=== PATIENT | female | born 1995 | race Two or more races ===

== ENCOUNTER 2022-08-30 19:25 | Inpatient (IN) | payer BC ==
[2022-08-30] MEDS ORDERED: DEXTROSE 5%-LACTATED RINGERS 1,000 ML IV SCH ×2 (20:30→23:30)
[2022-08-30 21:34] LABS: BASO % 0.3 % (0-2.0); EOS % 0.1 % (0-4.5); HEMATOCRIT 36.5 % (32.4-45.2); HEMOGLOBIN 12.8 GM/dL (10.7-15.3); LYMPH % 24.7 % (8-40); MCH 32.2 pg (25.7-33.7); MCHC 34.9 g/dl (32.0-36.0); MEAN CELL VOLUME 92.3 fl (80-96); MEAN PLT VOLUME 9.9 fl (7.5-11.1); MONO % 8.3 % (3.8-10.2); NEUT % 66.6 % (42.8-82.8); PLATELET COUNT 227 10^3/uL (134-434); RBC 3.96 M/mm3 (3.60-5.2); RDW 13.2 % (11.6-15.6); WHITE BLOOD COUNT 7.3 K/mm3 (4.0-10.0)
[2022-08-30 21:41] LABS: INR 1.01 (0.83-1.09); PROTHROMBIN TIME (PATIENT) 11.6 SEC (9.7-13.0)
[2022-08-30 21:55] LABS: CALCIUM 8.8 mg/dL (8.5-10.1)
[2022-08-30 21:57] LABS: ALBUMIN 2.8 g/dl (3.4-5.0); BLOOD UREA NITROGEN 16.3 mg/dL (7-18)
[2022-08-30 21:58] LABS: CREATININE 0.9 mg/dL (0.55-1.3); URIC ACID 5.4 mg/dL (2.6-7.2)
[2022-08-30 22:00] LABS: BILIRUBIN,TOTAL 0.4 mg/dL (0.2-1); TOT PROT 5.5 g/dl (6.4-8.2)
[2022-08-30 22:02] LABS: EPI CELLS >36 /uL (0-25.1); HYALINE CASTS 1 /uL (0-3.1); URINE APPEARANCE CLEAR; URINE BACTERIA 277 /uL (0-1359); URINE BILIRUBIN NEGATIVE (NEGATIVE); URINE COLOR YELLOW; URINE GLUCOSE (UA) NEGATIVE (NEGATIVE); URINE KETONE NEGATIVE (NEGATIVE); URINE LEUK ESTERASE 2+ (NEGATIVE); URINE NITRITE NEGATIVE (NEGATIVE); URINE PROTEIN 2+ (NEGATIVE); URINE RBC 16 /uL (0-23.9); URINE UROBILINOGEN 0.2 mg/dL (0.2-1.0); URINE WBC 56 /uL (0-25.8)
[2022-08-30 22:03] VITALS: BMI 30.6
[2022-08-31] MEDS ORDERED: MAGNESIUM 4GM/H20 - 4 GM/100 ML IVPB IVPB ONE ×2 (04:14→04:15)
[2022-08-31] MEDS ORDERED: DEXTROSE 5%-LACTATED RINGERS 1,000 ML IV SCH (04:15)
[2022-08-31] MEDS ORDERED: MAGNESIUM SULFATE 20GM/500ML - 20 GM/500 ML INFUS.BAG ONE ×2 (04:48→23:56)
[2022-08-31] MEDS: MAGNESIUM SULFATE 20GM/500ML - 20 GM/500 ML INFUS.BAG IVPB SCH (04:50)
[2022-08-31 09:23] LABS: BASO % 0.2 % (0-2.0); EOS % 0.1 % (0-4.5); HEMATOCRIT 40.1 % (32.4-45.2); HEMOGLOBIN 13.3 GM/dL (10.7-15.3); LYMPH % 16.4 % (8-40); MCHC 33.2 g/dl (32.0-36.0); MEAN CELL VOLUME 93.5 fl (80-96); MEAN PLT VOLUME 10.7 fl (7.5-11.1); MONO % 6.4 % (3.8-10.2); NEUT % 76.9 % (42.8-82.8); PLATELET COUNT 223 10^3/uL (134-434); RBC 4.29 M/mm3 (3.60-5.2); WHITE BLOOD COUNT 7.8 K/mm3 (4.0-10.0)
[2022-08-31 09:47] LABS: ALBUMIN 2.8 g/dl (3.4-5.0); CALCIUM 8.4 mg/dL (8.5-10.1)
[2022-08-31 09:48] LABS: MAGNESIUM 3.9 mg/dL (1.8-2.4)
[2022-08-31 09:51] LABS: BILIRUBIN,TOTAL 0.4 mg/dL (0.2-1); CREATININE 0.8 mg/dL (0.55-1.3); TOT PROT 5.8 g/dl (6.4-8.2)
[2022-08-31 09:53] LABS: URIC ACID 5.6 mg/dL (2.6-7.2)
[2022-08-31] MEDS ORDERED: OXYTOCIN 30 UNITS in 0.9% NS 30 UNIT/500 ML INFUS.BAG IVPB ONE (13:46)
[2022-08-31] MEDS: OXYTOCIN 30 UNITS in 0.9% NS 30 UNIT/500 ML INFUS.BAG IVPB SCH (14:00)
[2022-08-31] MEDS: ELECTROLYTE-148 SOLN 1,000 ML IV SCH (15:00)
[2022-08-31] MEDS ORDERED: ELECTROLYTE-148 SOLN 1,000 ML IV SCH (16:00)
[2022-08-31] MEDS ORDERED: hydrALAZINE HCL 20 MG/ML VIAL ONE (16:07)
[2022-08-31] MEDS ORDERED: hydrALAZINE HCL 20 MG/ML VIAL IVPUSH ONE (16:15)
[2022-08-31] MEDS ORDERED: NALOXONE HCL 0.4 MG/ML VIAL IVPUSH PRN (16:34)
[2022-08-31] MEDS ORDERED: FENTANYL/BUPIVACAINE/NS/PF - PCEA - 50 ML DISP.SYRIN EP ONE ×2 (16:35→20:40)
[2022-08-31] MEDS: FENTANYL/BUPIVACAINE/NS/PF - PCEA - 50 ML DISP.SYRIN EP SCH ×2 (17:00→20:45)
[2022-08-31] MEDS ORDERED: ONDANSETRON 4 MG/2 ML VIAL ONE (17:08)
[2022-08-31] MEDS ORDERED: BUPIVACAINE HCL/PF 0.25% (2.5MG/ML) 10 ML VIAL ONE (20:50)
[2022-08-31 21:51] LABS: MAGNESIUM 4.9 mg/dL (1.8-2.4)
[2022-08-31] MEDS ORDERED: OXYTOCIN 20 UNITS in 0.9% NS 20 UNIT/1,000 ML INFUS.BAG IV ONE (22:59)
[2022-09-01] MEDS ORDERED: oxyCODONE HCL 5 MG TABLET PO PRN (00:18)
[2022-09-01] MEDS ORDERED: METHYLERGONOVINE MALEATE 0.2 MG/1 ML AMP IM PRN (00:18)
[2022-09-01] MEDS ORDERED: ACETAMINOPHEN 325 MG TABLET (FP) PO PRN (00:18)
[2022-09-01] MEDS ORDERED: BISACODYL 10 MG SUPP.RECT RC PRN (00:18)
[2022-09-01] MEDS ORDERED: WITCH HAZEL 50% (TUCKS) 40 PAD/JAR PAD TP PRN (00:18)
[2022-09-01] MEDS ORDERED: BENZOCAINE 28 GM HEMORRHOIDAL OINTMENT TP PRN (00:18)
[2022-09-01] MEDS ORDERED: OXYTOCIN 20 UNITS in 0.9% NS 20 UNIT/1,000 ML INFUS.BAG IV SCH (00:30)
[2022-09-01 00:54] LABS: CORD BASE EXCESS -10.1 mmol/L (0-2); CORD HCO3 19.5 mmHg (20-29); CORD PCO2 57.5 mmHg (30-78); CORD pH 7.149 (7.14-7.44)
[2022-09-01 01:01] LABS: CORD HCO3 19.9 mmHg (20-29); CORD PCO2 66.4 mmHg (30-78); CORD pH 7.094 (7.14-7.44)
[2022-09-01] MEDS: BENZOCAINE 20% 57 GM BOTTLE TP PRN ×2 (02:35→15:00)
[2022-09-01] MEDS: IBUPROFEN 600 MG TABLET (FP) PO PRN ×2 (03:22→15:28)
[2022-09-01 09:48] LABS: POC NITRAZINE POS
[2022-09-01 10:13] LABS: MAGNESIUM 4.8 mg/dL (1.8-2.4)
[2022-09-01] MEDS ORDERED: PRENATAL VITAMINS W/ FOLIC ACID TABLET (FP) PO ONE (10:23)
[2022-09-01] MEDS: PRENATAL VITAMINS W/ FOLIC ACID TABLET (FP) PO SCH (10:30)
[2022-09-01] MEDS: NIFEdipine E.R. 30 MG TABLET PO SCH (16:27)
[2022-09-01] MEDS: ELECTROLYTE-148 SOLN 1,000 ML IV SCH (20:14)
[2022-09-01] MEDS: OXYTOCIN 30 UNITS in 0.9% NS 30 UNIT/500 ML INFUS.BAG IVPB SCH (20:14)
[2022-09-01] MEDS: MAGNESIUM SULFATE 20GM/500ML - 20 GM/500 ML INFUS.BAG IVPB SCH ×2 (20:14)
[2022-09-01] MEDS: FENTANYL/BUPIVACAINE/NS/PF - PCEA - 50 ML DISP.SYRIN EP SCH (20:15)
[2022-09-02] MEDS: IBUPROFEN 600 MG TABLET (FP) PO PRN ×2 (03:52→14:28)
[2022-09-02 07:30] LABS: BASO % 0.2 % (0-2.0); EOS % 0.2 % (0-4.5); HEMOGLOBIN 10.5 GM/dL (10.7-15.3); LYMPH % 19.5 % (8-40); MCH 31.4 pg (25.7-33.7); MCHC 33.8 g/dl (32.0-36.0); MEAN CELL VOLUME 93.1 fl (80-96); MEAN PLT VOLUME 10.5 fl (7.5-11.1); MONO % 5.9 % (3.8-10.2); NEUT % 74.2 % (42.8-82.8); PLATELET COUNT 187 10^3/uL (134-434); RBC 3.32 M/mm3 (3.60-5.2); RDW 13.6 % (11.6-15.6)
[2022-09-02] MEDS: NIFEdipine E.R. 30 MG TABLET PO SCH (10:52)
[2022-09-02] MEDS: PRENATAL VITAMINS W/ FOLIC ACID TABLET (FP) PO SCH (10:52)
[2022-09-02] MEDS ORDERED: SENNOSIDES/DOCUSATE COMBO (SENNA PLUS) TABLET (UD) PO PRN (22:00)
[2022-09-02 22:30] LABS: N-TERMINAL BNP 212.2 pg/ml (5-125)
[2022-09-02 23:01] LABS: N-TERMINAL BNP 221.9 pg/ml (5-125)
[2022-09-03] MEDS ORDERED: FUROSEMIDE 40 MG/4 ML INJECTABLE VIAL IVPUSH ONE (00:46)
[2022-09-03] MEDS ORDERED: CEFTRIAXONE 1 GM in DEXTROSE 5%-WATER - 50 ML IVPB ONE (00:52)
[2022-09-03] MEDS ORDERED: FUROSEMIDE 40 MG/4 ML INJECTABLE VIAL IVPUSH SCH (10:00)
[2022-09-03 10:01] LABS: CHOLESTEROL 188 mg/dL (50-200); TRIGLYCERIDES 157 mg/dL (0-150)
[2022-09-03 10:02] LABS: LDL CHOLESTEROL (ONLY SJRH) 95 mg/dL (5-100)
[2022-09-03 10:04] LABS: HDL CHOLESTEROL 73 mg/dL (40-60)
[2022-09-03 10:06] LABS: LDH 227 U/L (84-246)
[2022-09-03] MEDS: PRENATAL VITAMINS W/ FOLIC ACID TABLET (FP) PO SCH (10:20)
[2022-09-03] MEDS: IBUPROFEN 600 MG TABLET (FP) PO PRN (13:44)
[2022-09-03 15:26] VITALS: RESP 18
[2022-09-03 18:05] LABS: EPI CELLS 13 /uL (0-25.1); HYALINE CASTS 5 /uL (0-3.1); PH,URINE 6.5 (5.0-8.0); URINE APPEARANCE CLOUDY; URINE BACTERIA 15 /uL (0-1359); URINE BILIRUBIN NEGATIVE (NEGATIVE); URINE COLOR RED; URINE GLUCOSE (UA) NEGATIVE (NEGATIVE); URINE KETONE NEGATIVE (NEGATIVE); URINE LEUK ESTERASE 3+ (NEGATIVE); URINE NITRITE NEGATIVE (NEGATIVE); URINE PROTEIN 2+ (NEGATIVE); URINE WBC 1578 /uL (0-25.8)
[2022-09-03 18:36] LABS: URINE RBC 13022 /uL (0-23.9)
[2022-09-04 02:15] VITALS: TEMP 98.6
[2022-09-04] MEDS: PRENATAL VITAMINS W/ FOLIC ACID TABLET (FP) PO SCH (09:20)
[2022-09-04 09:55] VITALS: BP 131/79; PULSE 81
== END 2022-09-04 12:40 | disposition home or self-care (01) | DRG 806 ==
LOC: JLDR 19:25 → J3W 09-01 14:00
PROVIDERS: ADMIT Obstetrics & Gynecology; ATTEND Obstetrics & Gynecology
PROC: 10E0XZZ Delivery of Products of Conception, External Approach (ICD-10-PCS; principal; 2022-08-31)
PROC: 0W8NXZZ Division of Female Perineum, External Approach (ICD-10-PCS; 2022-08-31)
DX: O16.4 Unspecified maternal hypertension, complicating childbirth (principal); N39.0 Urinary tract infection, site not specified; Z37.0 Single live birth; O86.20 Urinary tract infection following delivery, unspecified; O14.04 Mild to moderate pre-eclampsia, complicating childbirth; O42.02 Full-term premature rupture of membranes, onset of labor within 24 hours of rupture; O70.1 Second degree perineal laceration during delivery; O90.89 Other complications of the puerperium, not elsewhere classified; R00.2 Palpitations; R07.9 Chest pain, unspecified; R06.02 Shortness of breath; Z3A.38 38 weeks gestation of pregnancy
CPT/HCPCS: 36415; 36600; 59409; 71045-TC-FY; 80053; 80061; 81003; 82550; 82553; 82803; 82977; 83010; 83615; 83735; 83880; 83986-QW; 84443; 84484; 84550; 85025; 85045; 85384; 85610; 85730; 86780; 86850; 86900; 86901; 87077; 87086; 93005; 93010; 93306-TC; 94010; C9803-CS; U0003; U0005

== ENCOUNTER 2024-08-18 13:10 | Inpatient (IN) | payer OTHER ==
[2024-08-18] MEDS ORDERED: AMPICILLIN SODIUM 2 GM VIAL ONE (13:39)
[2024-08-18] MEDS: ELECTROLYTE-148 SOLN 1,000 ML IV SCH (13:50)
[2024-08-18] MEDS: AMPICILLIN - 2 GM in SODIUM CHLORIDE 100 ML IVPB SCH (13:55)
[2024-08-18 15:38] LABS: BASO % 0.2 % (0-2.0); EOS % 0.2 % (0-4.5); HEMATOCRIT 33.4 % (32.4-45.2); HEMOGLOBIN 11.2 GM/dL (10.7-15.3); LYMPH % 16.5 % (8-40); MCH 28.5 pg (25.7-33.7); MCHC 33.5 g/dl (32.0-36.0); MEAN CELL VOLUME 85.2 fl (80-96); MEAN PLT VOLUME 9.8 fl (7.5-11.1); MONO % 6.6 % (3.8-10.2); NEUT % 76.5 % (42.8-82.8); PLATELET COUNT 205 10^3/uL (134-434); RBC 3.92 M/mm3 (3.60-5.2); RDW 14.8 % (11.6-15.6); WHITE BLOOD COUNT 6.7 K/mm3 (4.0-10.0)
[2024-08-18 15:52] LABS: POTASSIUM 4.4 mmol/L (3.5-5.1)
[2024-08-18 15:54] LABS: CALCIUM 8.7 mg/dL (8.5-10.1)
[2024-08-18 15:58] VITALS: BMI 31.6
[2024-08-18 15:58] LABS: CREATININE 0.8 mg/dL (0.55-1.3)
[2024-08-18 17:20] LABS: INR 0.98 (0.83-1.09); PROTHROMBIN TIME (PATIENT) 11.1 SEC (9.7-13.0)
[2024-08-18 17:23] LABS: ACTIVATED PTT 25.6 SECONDS (25.2-36.5)
[2024-08-18] MEDS: AMPICILLIN - 1 GM in SODIUM CHLORIDE 100 ML IVPB SCH (18:57)
[2024-08-18] MEDS ORDERED: AMPICILLIN SODIUM 1 GM VIAL ONE ×2 (19:18→23:49)
[2024-08-18] MEDS ORDERED: OXYTOCIN 30 UNITS in 0.9% NS 30 UNIT/500 ML INFUS.BAG IVPB ONE (20:50)
[2024-08-18] MEDS: OXYTOCIN 30 UNITS in 0.9% NS 30 UNIT/500 ML INFUS.BAG IVPB SCH (20:55)
[2024-08-18] MEDS ORDERED: FENTANYL/BUPIVACAINE/NS/PF - PCEA - 50 ML DISP.SYRIN EP ONE (21:42)
[2024-08-18] MEDS: FENTANYL/BUPIVACAINE/NS/PF - PCEA - 50 ML DISP.SYRIN EP SCH (22:05)
[2024-08-18] MEDS ORDERED: NALOXONE HCL 0.4 MG/ML VIAL IVPUSH PRN (22:26)
[2024-08-19] MEDS ORDERED: OXYTOCIN 20 UNITS in 0.9% NS 20 UNIT/1,000 ML INFUS.BAG IV ONE (01:10)
[2024-08-19] MEDS ORDERED: LIDOCAINE HCL 1% PRESERVATIVE FREE - 30ML VIAL ONE (01:10)
[2024-08-19] MEDS: OXYTOCIN 20 UNITS in 0.9% NS 20 UNIT/1,000 ML INFUS.BAG IV SCH (01:35)
[2024-08-19] MEDS ORDERED: METHYLERGONOVINE MALEATE 0.2 MG/1 ML AMP IM PRN (01:48)
[2024-08-19] MEDS ORDERED: WITCH HAZEL 50% (TUCKS) 40 PAD/JAR PAD TP PRN (01:48)
[2024-08-19] MEDS ORDERED: oxyCODONE HCL 5 MG TABLET PO PRN (01:48)
[2024-08-19] MEDS ORDERED: ACETAMINOPHEN 325 MG TABLET (FP) PO PRN (01:48)
[2024-08-19] MEDS ORDERED: BENZOCAINE 28 GM HEMORRHOIDAL OINTMENT TP PRN (01:48)
[2024-08-19] MEDS ORDERED: BISACODYL 10 MG SUPP.RECT RC PRN (01:48)
[2024-08-19] MEDS: PROMETHAZINE HCL 25 MG/1 ML VIAL IVPB ONE (02:13)
[2024-08-19 02:18] LABS: CORD BASE EXCESS -2.9 mmol/L (0-2); CORD HCO3 21.8 mmHg (20-29); CORD PCO2 38.1 mmHg (30-78); CORD pH 7.375 (7.14-7.44)
[2024-08-19 02:25] LABS: CORD BASE EXCESS -5.6 mmol/L (0-2); CORD PCO2 63.7 mmHg (30-78); CORD pH 7.194 (7.14-7.44)
[2024-08-19] MEDS: IBUPROFEN 600 MG TABLET (FP) PO PRN (08:54)
[2024-08-19] MEDS: BENZOCAINE 20% 57 GM BOTTLE TP PRN (10:13)
[2024-08-20 08:37] LABS: BASO % 0.3 % (0-2.0); EOS % 0.8 % (0-4.5); HEMATOCRIT 29.1 % (32.4-45.2); HEMOGLOBIN 9.7 GM/dL (10.7-15.3); LYMPH % 19.7 % (8-40); MCH 28.4 pg (25.7-33.7); MCHC 33.3 g/dl (32.0-36.0); MEAN CELL VOLUME 85.3 fl (80-96); MEAN PLT VOLUME 9.3 fl (7.5-11.1); MONO % 5.9 % (3.8-10.2); NEUT % 73.3 % (42.8-82.8); PLATELET COUNT 189 10^3/uL (134-434); RBC 3.41 M/mm3 (3.60-5.2); RDW 14.9 % (11.6-15.6); WHITE BLOOD COUNT 8.4 K/mm3 (4.0-10.0)
[2024-08-20 21:12] VITALS: RESP 16
[2024-08-20] MEDS ORDERED: SENNOSIDES/DOCUSATE COMBO (SENNA PLUS) TABLET (UD) PO PRN (22:00)
[2024-08-20] MEDS: BUTORPHANOL TARTRATE 1 MG/ML VIAL IVPUSH ONE (22:51)
[2024-08-21 10:11] VITALS: BP 128/80; PULSE 77; TEMP 98
== END 2024-08-21 14:00 | disposition home or self-care (01) | DRG 560 ==
LOC: JLDR 13:10 → J3W 08-19 04:20
PROVIDERS: ADMIT Obstetrics & Gynecology; ATTEND Obstetrics & Gynecology
PROC: 10E0XZZ Delivery of Products of Conception, External Approach (ICD-10-PCS; principal; 2024-08-19)
PROC: 0HQ9XZZ Repair Perineum Skin, External Approach (ICD-10-PCS; 2024-08-19)
PROC: 0W8NXZZ Division of Female Perineum, External Approach (ICD-10-PCS; 2024-08-19)
DX: O48.0 Post-term pregnancy (principal); Z3A.40 40 weeks gestation of pregnancy; O99.824 Streptococcus B carrier state complicating childbirth; O70.0 First degree perineal laceration during delivery; Z37.0 Single live birth
CPT/HCPCS: 36415; 36600; 59409; 80048; 82803; 82962; 85025; 85610; 85730; 86780; 86850; 86900; 86901